=== PATIENT | female | born 1950 | race Caucasian/White ===

== ENCOUNTER 2019-09-27 01:18 | Emergency (ER) | payer BC, MEDICARE ==
[~2019-09-27] VITALS: Ht 167.7 cm; Wt 77.3 kg
--- NOTE | 2019-09-27 01:44 | ED Trauma-Multisystem ---
General Chief Complaint: Trauma-Non Activation Stated Complaint: FALL HEAD TRAUMA History of Present Illness Date Seen by Provider: Sep 27, 2019 Time Seen by Provider: 01:20 Initial Comments The patient is a 68-year-old female with a history of hypertension and tobacco abuse whose tetanus is not up-to-date. She presents with concern for a ground- level fall with consequent right forehead injury, all with onset just prior to arrival when the patient slipped as she was trying to get out of bed to urinate. She struck her right forehead on a shelf on her bed on the way down. No loss of consciousness, nausea or vomiting or amnesia to events. Patient denies pain anywhere aside from to her right forehead where a large contusion is seen. She specifically denies pain to her neck, chest, abdomen, back, arms or legs. She is alert and oriented 4 in pleasantly and appropriately interactive and in absolutely no distress upon initial evaluation in the emergency department. She ambulates in with a narrow, steady gait. No therapy for discomfort prior to arrival. Allergies and Home Medications Allergies Coded Allergies: No Known Drug Allergies (Unverified , 09/27/19) Home Medications Acetaminophen 325 Mg Tablet, 975 MG PO Q8H Prescribed by: ALYSON SCHWARTZ on 09/27/19148 Ondansetron 4 Mg Tab.rapdis, 4 MG PO Q8H Prescribed by: ALYSON SCHWARTZ on 09/27/19148 Patient Home Medication List Home Medication List Reviewed: Yes Review of Systems Review of Systems Constitutional: see HPI All Other Systems Reviewed Negative Unless Noted: Yes (Negative excepted noted.) Past Yusoimc-Aykpcs-Wxkdcd Hx Past Med/Social Hx: Reviewed Nursing Past Med/Soc Hx Patient Social History Recent Foreign Travel: No Contact w/Someone Who Travel: No Family Medical History Reviewed Nursing Family Hx Physical Exam Vital Signs Vital Signs - First Documented 09/27/19 01:42 Temp 36.1 Pulse 58 Resp 16 B/P (MAP) 197/79 (118) Pulse Ox 99 O2 Delivery Room Air Height, Weight, BMI Height: '" Weight: lbs. oz. kg; BMI Method: General Appearance: No Apparent Distress This is an elderly female appearing nontoxic and in no acute distress. Head is normocephalic and with an approximately 5 cm diameter contusion to the l ateral right forehead superior to the eyebrow. There is an associated abrasion. No laceration noted. No signs basilar fracture. No instability of the mid face, malocclusion, other signs of facial trauma. Neck is supple and nontender. Oropharynx is moist. Lungs are clear to auscultation in all stations. There is a normal S1 and S2 without rubs or gallops and capillary refill is appropriate, less than 2 seconds globally. Abdomen is soft, nontender and nondistended. Skin is warm and dry and without cyanosis, clubbing or edema. Psychiatrically, the patient demonstrates appropriate mood and affect and is alert. Neurologically, cranial nerves II through XII are intact and there are no lateralizing deficits noted. Speech is normal. Language is normal. Coordination is normal. There is no dysmetria with bospun-ty-yula or mbgr-dj-zdgg bilaterally. Strength is 5 out of 5 in all joints of bilateral upper and lower extremities. Sensation is intact to light touch in bilateral upper and lower extremity. The patient ambulates with a narrow, steady gait in the emergency department and is alert and oriented 4. Progress/Results/Core Measures Results/Orders My Orders Orders - ALYSON SCHWARTZ MD Ct Head Wo (09/27/19 01:37) Acetaminophen Tablet/Caplet (Tylenol T (09/27/19 01:45) Dipht,Pertuss(Acell),Tet Adult (Boostrix (09/27/19 01:45) Medications Given in ED Current Medications Medications Dose Ordered Sig/Varinder Route Start Time Stop Time Status Last Admin Dose Admin Acetaminophen 975 mg ONCE ONCE PO 09/27/19 01:45 09/27/19 01:46 DC 09/27/19 01:52 975 MG Diphtheria/ Tetanus/Acell Pertussis 0.5 ml ONCE ONCE IM 09/27/19 01:45 09/27/19 01:46 DC 09/27/19 01:53 0.5 ML Vital Signs/I&O 09/27/19 01:42 Temp 36.1 Pulse 58 Resp 16 B/P (MAP) 197/79 (118) Pulse Ox 99 O2 Delivery Room Air Progress Progress Note : Time: 01:44 Progress Note Clinical examination reassuring and neurologic examination nonfocal. 68-year-old female with mechanical slip and fall leading to head injury. Does not rule out by [place] head CT rules purely due to age. We will check head CT and update tetanus and give Tylenol for discomfort and then reevaluate. If workup is reassuring, plan will be for discharge home with medication for discomfort, concussion precautions and instructions to follow up very closely in the next 1- 2 days with primary care. The patient and her grandson understand and agree with this plan of care. Update 0220: CT head negative per wet read; patient states in no uncertain terms that she does not want to wait for radiology read and understands the risks of leaving before it is back, including missed pathology, decompensation and permanent disability. We are going to take her phone number down so that we can call if radiologist read is of concern. Patient is resting comfortably in no acute distress and feels ready to go home. We will clean wound and apply dressing. The patient understands that if she feels worse is that of better or develops other new symptoms of concern that she should return immediately to the emergency department for reevaluation. Otherwise she is to follow up closely in the next 1-2 days with primary care as discussed. We will proceed with discharge home at this time. All questions are answered. Diagnostic Imaging Comments CT head: no acute process per EP read; statrad read pending. Departure Impression Primary Impression: Fall from bed, initial encounter Additional Impression: Contusion of forehead Qualified Codes: S00.83XA - Contusion of other part of head, initial encounter Disposition: 01 HOME, SELF-CARE Condition: Improved Departure-Patient Inst. Referrals: SELFDANIELLE MD (PCP/Family) Primary Care Physician Patient Instructions: Contusion (DC) Add. Discharge Instructions: Follow-up with your primary care physician in the next 1-2 days. You may use the ibuprofen as needed for discomfort. Return to the emergency department right away with worsen symptoms or with any other new symptoms of concern. Scripts Ondansetron (Ondansetron Odt) 4 Mg Tab.rapdis 4 MG PO Q8H for nausea, #10 TAB Prov: ALYSON SCHWARTZ MD 09/27/19 Acetaminophen (Tylenol) 325 Mg Tablet 975 MG PO Q8H for 5 Days, #50 TAB Prov: ALYSON SCHWARTZ MD 09/27/19 ALYSON SCHWARTZ MD Sep 27, 2019 01:44 POS
[2019-09-27] MEDS ORDERED: ACETAMINOPHEN 325 MG TABLET PO ONE (01:45)
[2019-09-27] MEDS ORDERED: TETANUS,DIPTH,PERTUSS P/F (BOOSTRIX) 0.5 ML VIAL IM ONE (01:45)
[2019-09-27] MEDS ORDERED: ONDA4TAB11 PO (01:49)
[2019-09-27] MEDS ORDERED: ACET325T38 PO (01:49)
--- NOTE | 2019-09-27 02:00 | NUR ---
wound cleansed with hibiclens and 4 x4 's
[2019-09-27 02:35] VITALS: BP 179/86
--- NOTE | 2019-09-27 06:55 | Diagnostic Imaging Report ---
PROCEDURE: CT head without contrast. TECHNIQUE: Multiple contiguous axial images were obtained through the brain without the use of intravenous contrast. Auto Exposure Controls were utilized during the CT exam to meet ALARA standards for radiation dose reduction. INDICATION: Fall, pain. EXAMINATION: CT brain without contrast 09/27/2019. COMPARISON: None. FINDINGS: Chronic ischemic change is seen in a periventricular distribution with an acute infarct not seen. No mass, mass effect or midline shift. No hydrocephalus. No hemorrhage is seen. There are some areas degraded by motion artifact, however. There is no acute osseous abnormality. A hematoma overlies the right frontal calvarium. Paranasal sinuses and mastoid air cells appear clear. IMPRESSION: 1. No acute intracranial process with chronic findings as above. 2. Scalp hematoma. Pertinent findings agree with the preliminary report. Dictated by: Dictated on workstation # [id number]
== END 2019-09-27 02:35 | disposition home or self-care (01) ==
LOC: EDUNIT# 01:18 → ER FS 01:23
DX: S00.83XA Contusion of other part of head, initial encounter (principal); I10 Essential (primary) hypertension; W06.XXXA Fall from bed, initial encounter; W01.190A Fall on same level from slipping, tripping and stumbling with subsequent striking against furniture, initial encounter
CPT/HCPCS: 70450; 90471; 90715

== ENCOUNTER 2020-06-27 09:17 | Emergency (ER) | payer BC, MEDICARE ==
[~2020-06-27] VITALS: Ht 170.1 cm; Wt 72.7 kg
[~2020-06-27 09:17] MED LIST: ACET325T38 PO; ONDA4TAB11 PO
--- OUTSIDE RECORDS SUMMARY | 2020-06-27 09:31 | XMS REPORT | Continuity of Care Document ---
Author Organization Unknown Address Unknown Phone Unavailable Allergies Active Description Code Type Severity Reaction Onset Reported/Identified Relationship to Patient Clinical Status Yes No Known Drug Allergies [id number] Drug Allergy Unknown N/A 09/27/2019 Medications There is no data. Problems Date Dx Coded Attending Type Code Diagnosis Diagnosed By 09/27/2019 ALYSON SCHWARTZ MD, Ot I10 ESSENTIAL (PRIMARY) HYPERTENSION 09/27/2019 ALYSON SCHWARTZ MD, Ot S00.83XA CONTUSION OF OTHER PART OF HEAD, INITIAL 09/27/2019 ALYSON SCHWARTZ MD Ot W01.190A FALL SAME LEV FROM SLIP/TRIP W STRIKE AG 09/27/2019 ALYSON SCHWARTZ MD, Ot W06.XXXA FALL FROM BED, INITIAL ENCOUNTER 10/01/2019 ALYSON SCHWARTZ MD, Ot I10 ESSENTIAL (PRIMARY) HYPERTENSION 10/01/2019 ALYSON SCHWARTZ MD, Ot S00.83XA CONTUSION OF OTHER PART OF HEAD, INITIAL 10/01/2019 ALYSON SCHWARTZ MD, Ot W01.190A FALL SAME LEV FROM SLIP/TRIP W STRIKE AG 10/01/2019 ALYSON SCHWARTZ MD, Ot W06.XXXA FALL FROM BED, INITIAL ENCOUNTER Procedures There is no data. Results Test Result Range TSH w/ FREE T4 - 03/27/19 10:30 TSH 0.24 mIU/L 0.40-4.50 T4, FREE 1.3 ng/dL 0.8-1.8 LIPID PANEL - 05/22/20 12:00 CHOLESTEROL, TOTAL 206 mg/dL <200 HDL CHOLESTEROL 38 mg/dL > OR = 50 TRIGLYCERIDES 103 mg/dL <150 LDL-CHOLESTEROL 146 mg/dL (calc) NRG CHOL/HDLC RATIO 5.4 (calc) <5.0 NON HDL CHOLESTEROL 168 mg/dL (calc) <13 0 CMP - 05/22/20 12:00 GLUCOSE 114 mg/dL 65-99 UREA NITROGEN (BUN) 16 mg/dL 7-25 CREATININE 1.00 mg/dL 0.60-0.93 eGFR NON-AFR. TURKMEN 57 mL/min/1.73m2 > OR = 60 eGFR 66 mL/min/1.73m2 > OR = 60 BUN/CREATININE RATIO 16 (calc) 6-22 SODIUM 125 mmol/L 135-146 POTASSIUM 4.4 mmol/L 3.5-5.3 CHLORIDE 88 mmol/L 98-110 CARBON DIOXIDE 30 mmol/L 20-32 CALCIUM 9.4 mg/dL 8.6-10.4 PROTEIN, TOTAL 6.7 g/dL 6.1-8.1 ALBUMIN 4.0 g/dL 3.6-5.1 GLOBULIN 2.7 g/dL (calc) 1.9-3.7 ALBUMIN/GLOBULIN RATIO 1.5 (calc) 1.0-2. 5 BILIRUBIN, TOTAL 1.1 mg/dL 0.2-1.2 ALKALINE PHOSPHATASE 63 U/L 37-153 AST 12 U/L 10-35 ALT 7 U/L 6-29 Encounters ACCT No. Visit Date/Time Discharge Status Pt. Type Provider Facility Loc./Unit Complaint [id number] 05/29/2020 11:00:00 05/29/2020 23:59: 59 CLS Outpatient SELF, DANIELLE Mccord [facility] [id number] 05/22/2020 10:45:00 Document Registration [id number] 03/27/2019 09:00:00 Document Registration [id number] 09/27/2019 01:23:00 019 02:35:00 DIS Emergency LANA CASEY, ALYSON [facility] ER FS FALL HEAD TRAUMA
[2020-06-27] MEDS ORDERED: LIDOCAINE 1% INJ 20 ML 20 ML VIAL INJ ONE (09:45)
--- NOTE | 2020-06-27 09:57 | ED Trauma-Multisystem ---
General Chief Complaint: Trauma-Non Activation Stated Complaint: LAC FROM FALL History of Present Illness Date Seen by Provider: Jun 27, 2020 Time Seen by Provider: 09:30 Initial Comments Patient was walking outside [facility] with a crockpot and her hand landing on the glass numerous lacerations left forearm right hand right knee right lip lower no loss of consciousness later someone came by called EMS. Occurred: Just Prior to Arrival Severity: Mild Pain/Injury Location: Lower Extremity, Upper Extremity Method of Injury: Fall Loss of Consciousness: No Loss of Consciousness Associated Symptoms (Fall): No Confusion, No Dizziness, No Headache, No Lightheadedness, No Nausea/Vomiting, No Trouble Walking Allergies and Home Medications Allergies Coded Allergies: No Known Drug Allergies (Unverified , 09/27/19) Home Medications Acetaminophen 325 Mg Tablet, 975 MG PO Q8H Prescribed by: ALYSON SCHWARTZ on 09/27/19148 Ondansetron 4 Mg Tab.rapdis, 4 MG PO Q8H Prescribed by: ALYSON SCHWARTZ on 09/27/19148 Patient Home Medication List Home Medication List Reviewed: Yes Review of Systems Review of Systems Constitutional: no symptoms reported Eyes: Denies Blurred Vision, Denies Vision Changes Ears: Denies Dizziness, Denies Tinnitus Mouth: No Loose Teeth; Pain, Swelling Throat: No Symptoms to Report Respiratory: no symptoms reported Cardiovascular: No Symptoms Reported Gastrointestinal: no symptoms reported Musculoskeletal: No joint pain, No joint swelling, No muscle pain Skin: other (numerous lacerations noted) Past Yoqasfr-Vqcopa-Udrxur Hx Past Med/Social Hx: Reviewed Nursing Past Med/Soc Hx Patient Social History Alcohol Use: Occasionally Uses Number of Drinks Today: 0 Alcohol Beverage of Choice: Other Recreational Drug Use: No Smoking Status: Current Everyday Smoker Type Used: Cigarettes Recent Hopitalizations: No Immunizations Up To Date Tetanus Booster (TDap): Unknown Seasonal Allergies Seasonal Allergies: No Past Medical History Surgeries: Yes Cystectomy, Tonsillectomy Respiratory: No Cardiac: Yes Hypertension Neurological: No Genitourinary: No Gastrointestinal: No Musculoskeletal: Yes (arthritis knees) Arthritis Endocrine: No HEENT: No Cancer: No Psychosocial: No Integumentary: No Blood Disorders: No Physical Exam Vital Signs Vital Signs - First Documented 06/27/20 09:17 Temp 36.8 Pulse 62 Resp 18 B/P (MAP) 163/53 (89) Pulse Ox 99 O2 Delivery Room Air Height, Weight, BMI Height: '" Weight: lbs. oz. kg; 27.00 BMI Method: General Appearance: WD/WN, Mild Distress Head: Other (superficial abrasion contusion right upper lip) Eyes: Bilateral Eye Normal Inspection, Bilateral Eye PERRL, Bilateral Eye EOMI Ears, Nose, Throat: No Evidence of ENT Injury Neck: Normal Inspection, Non Tender Cardiovascular: Regular Rate, Rhythm, No Murmur Respiratory: Chest Non Tender, Normal Breath Sounds Extremity: Other (laceration beginning just lateral left elbow laceration on the knee several lacerations right hand laceration on the elbow 4 cm in length fairly gaping with extension down to the subcutaneous fat no foreign body identified laceration on the right knee approximately 2 cm in size no foreign body lacerations on the hand fairly extensive proximal laceration on the fourth finger dorsal side of the hand not in the tendinous structures smaller laceration on the dorsum and then middle phalanx 2 small lacerations one on the fourth finger one on the third finger both of the finger pads that appeared to be more shaving than a true laceration.) Neurologic/Psychiatric: Alert, Oriented x3 Skin: Normal Color, Warm/Dry Procedures/Interventions Progress Sterile prep and drape 1% local lidocaine with thorough irrigation for all lacerations 4 cm laceration left elbow gaping thoroughly irrigated closed with 6 4-0 Ethilon sutures laceration on the right knee 1-1/2 cm closed with 3 4-0 Ethilon sutures laceration on the dorsum of the right hand closed with 6 4-0 Ethilon sutures laceration #2 on the the right hand closed with 2 4-0 Ethilon sutures patient tolerated procedure well no foreign bodies were identified. Progress/Results/Core Measures Results/Orders My Orders Orders - RADHA LUIS JR, MD Lidocaine 1% Inj 20 Ml (Xylocaine 1% Inj (06/27/20 09:45) Medications Given in ED Current Medications Medications Dose Ordered Sig/Varinder Route Start Time Stop Time Status Last Admin Dose Admin Lidocaine HCl 20 ml ONCE ONCE INJ 06/27/20 09:45 06/27/20 09:46 DC 06/27/20 10:03 20 ML Vital Signs/I&O 06/27/20 09:17 Temp 36.8 Pulse 62 Resp 18 B/P (MAP) 163/53 (89) Pulse Ox 99 O2 Delivery Room Air Departure Impression Primary Impression: Multiple lacerations Disposition: HOME, SELF-CARE Condition: Stable Departure-Patient Inst. Referrals: DANIELLE LA MD (PCP/Family) Primary Care Physician Patient Instructions: Laceration Repair With Stitches (DC) Add. Discharge Instructions: Sutures out in 10 days return if any sign of infection All discharge instructions reviewed with patient and/or family. Voiced understanding. Work/School Note: Work Release Form Date Seen in the Emergency Department: Jun 27, 2020 Return to Work: Jun 30, 2020 Restrictions: No Restrictions RADHA LUIS JR, MD Jun 27, 2020 09:57
[2020-06-27] MEDS ORDERED: TETANUS,DIPTH,PERTUSS P/F (BOOSTRIX) 0.5 ML VIAL IM ONE (10:30)
[2020-06-27 10:39] VITALS: BP 155/56
--- NOTE | 2020-06-27 10:39 | NUR ---
Patient discharged following review of home instructions discussed and verbalizing understanding. Sutures out in 10 days. Wound care pre and post suturing per Jacquelin THOMAS. Dressings applied per Jacquelin THOMAS. AISSATOU garcia. Tetanus administered before discharge. Family called twice for updates on patient and information given per pt's permission. Pt is off work till Tuesday with work note provided. Numerous laceration repairs per Dr Patel dictation.
[2020-06-27] MEDS ORDERED: LISI40TA PO (11:15)
[2020-06-27] MEDS ORDERED: AMLO5TAB9 PO (11:15)
[2020-06-27] MEDS ORDERED: CELE-63 PO (11:15)
[2020-06-27] MEDS ORDERED: HYDR25TA4 PO (11:15)
[2020-06-27] MEDS ORDERED: ROSU20TA32 PO (11:15)
== END 2020-06-27 10:39 | disposition home or self-care (01) ==
LOC: EDUNIT# 09:17 → ER FS 09:18
DX: S81.011A Laceration without foreign body, right knee, initial encounter (principal); S51.012A Laceration without foreign body of left elbow, initial encounter; S61.214A Laceration without foreign body of right ring finger without damage to nail, initial encounter; S61.212A Laceration without foreign body of right middle finger without damage to nail, initial encounter; S00.531A Contusion of lip, initial encounter; Z23 Encounter for immunization; F17.210 Nicotine dependence, cigarettes, uncomplicated; W18.39XA Other fall on same level, initial encounter
CPT/HCPCS: 12015; 90715

== ENCOUNTER 2021-12-09 14:14 | Emergency (ER) | payer BC, MEDICARE ==
[~2021-12-09] VITALS: Ht 167 cm; Wt 74.0 kg
[~2021-12-09 14:14] MED LIST changes: +AMLO-250 PO; +CELE-63 PO; +HYDR25TA4 PO; +LISI40TA9 PO; +ROSU20TA32 PO
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
--- NOTE | 2021-12-09 15:08 | Diagnostic Imaging Report ---
INDICATION: Pain in the right lower leg. TIME OF EXAM: 02:52 p.m. TECHNIQUE: Frontal and lateral views of the right tibia and fibula were obtained. FINDINGS: Alignment at the knee and ankle appears normal. No fracture is identified. Tibia and fibula appear intact. Soft tissues are unremarkable. IMPRESSION: No acute bony abnormality is detected. Dictated by: Dictated on workstation # [id number]
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
[2021-12-09] MEDS ORDERED: HYDROcodone/APAP 5 MG/325 MG (LORTAB) TAB PO STA (16:09)
[2021-12-09] MEDS ORDERED: ACHD5005 PO (16:17)
[2021-12-09 16:23] VITALS: BP 142/72
== END 2021-12-09 16:24 | disposition home or self-care (01) ==
LOC: EDUNIT# 14:14 → ER FS 14:15
DX: S32.030A Wedge compression fracture of third lumbar vertebra, initial encounter for closed fracture (principal); S80.11XA Contusion of right lower leg, initial encounter; I10 Essential (primary) hypertension; F17.210 Nicotine dependence, cigarettes, uncomplicated; Z79.899 Other long term (current) drug therapy; W19.XXXA Unspecified fall, initial encounter; Y92.009 Unspecified place in unspecified non-institutional (private) residence as the place of occurrence of the external cause
CPT/HCPCS: 72131; 72192; 73590

== ENCOUNTER → 2022-01-12 | Outpatient (CLI) | payer BC, MEDICARE ==
[~2022-01-12] MED LIST changes: +ACHD5005 PO
--- NOTE | 2022-01-13 08:59 | Diagnostic Imaging Report ---
CLINICAL INDICATION: Patient fell a month ago and has low back pain. EXAM: MRI of the lumbar spine performed without IV contrast. Sequences include sagittal T2, sagittal T1, sagittal T2 fat-sat, and axial T2. COMPARISON: CT scan of the lumbar spine without contrast dated 12/09/2021. FINDINGS: There is a small to moderate amount of marrow edema involving the upper aspect of the T12 vertebra with curvilinear horizontally oriented low signal seen within the region, consistent with acute/subacute infarcts. There is roughly 20% loss of height with no significant retropulsed component. This is new compared to the prior CT scan. Again seen is the subacute compression fracture deformity of the L3 vertebra with a small to moderate amount of marrow edema. There is slight progression of loss of height of the vertebra with roughly 40-50% loss of height. There is no other acute lumbar spine fracture. There is no significant paraspinal soft tissue abnormality. The visualized portions of the distal thoracic spinal cord, conus medullaris, and cauda equina nerve roots are unremarkable. The conus medullaris tip is seen at the upper L1 vertebral body level. There is no significant paraspinal soft tissue abnormality. There are small cysts involving the right kidney. There are small degenerative spurs seen throughout the lumbar spine and multilevel lumbar spine facet arthropathy. T11-T12: There is moderate bilateral facet arthropathy and mild diffuse disk bulge. There is moderate central canal stenosis and moderate right neuroforaminal narrowing with no significant left neuroforaminal narrowing. T12-L1: There is mild diffuse disk bulge and mild to moderate bilateral facet arthropathy. There is no significant central canal stenosis. There is mild right neuroforaminal narrowing and no significant left neuroforaminal narrowing. L1-L2: There is mild diffuse disk bulge and moderate bilateral facet arthropathy. There is no significant central canal narrowing. There is moderate right neuroforaminal narrowing and mild left neuroforaminal narrowing. L2-L3: There is mild diffuse disk bulge, moderate bilateral facet arthropathy/hypertrophy, and ligamentum flavum buckling. Mild to moderate central canal stenosis. There is mild bilateral neuroforaminal narrowing. L3-L4: There is minimal disk bulging. There is severe bilateral facet arthropathy/hypertrophy and ligamentum flavum buckling. There is mild to moderate central canal stenosis. There is mild right neuroforaminal narrowing and no significant left neuroforaminal narrowing. L4-L5: There is severe bilateral facet arthropathy with hypertrophic changes on the right side. There is ligamentum flavum buckling. There is an annular tear involving the right subarticular aspect of the disk. There is moderate right neuroforaminal narrowing and mild to moderate left neuroforaminal narrowing. There is mild central canal stenosis. L5-S1: There is severe bilateral facet arthropathy. There is no significant central canal or neuroforaminal narrowing. IMPRESSION: 1: There has been interval development of a mild acute/subacute compression fracture deformity of the upper aspect of the T12 vertebra. 2: There is a subacute fracture involving the upper aspect of the L3 vertebra which has slightly progressed in loss of height in the interim. 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 Dictated by: Dictated on workstation # [id number]
== END ==
LOC: RAD 14:45
PROVIDERS: ATTEND Family Medicine
DX: M48.54XA Collapsed vertebra, not elsewhere classified, thoracic region, initial encounter for fracture (principal); M47.814 Spondylosis without myelopathy or radiculopathy, thoracic region; M47.815 Spondylosis without myelopathy or radiculopathy, thoracolumbar region; M47.816 Spondylosis without myelopathy or radiculopathy, lumbar region; M47.817 Spondylosis without myelopathy or radiculopathy, lumbosacral region; M51.24 Other intervertebral disc displacement, thoracic region; M51.25 Other intervertebral disc displacement, thoracolumbar region; M51.26 Other intervertebral disc displacement, lumbar region; M51.36 Other intervertebral disc degeneration, lumbar region; M48.04 Spinal stenosis, thoracic region; M48.05 Spinal stenosis, thoracolumbar region; M48.061 Spinal stenosis, lumbar region without neurogenic claudication; W19.XXXD Unspecified fall, subsequent encounter; M48.07 Spinal stenosis, lumbosacral region
CPT/HCPCS: 72148

== ENCOUNTER 2022-02-17 11:03 | Emergency (ER) | payer BC, MEDICARE ==
[~2022-02-17] VITALS: Ht 167.7 cm; Wt 70.0 kg
[2022-02-17 11:10] VITALS: BP_SYST 158; BP_SYST 179; BP_SYST 186; BP_DIAS 68; BP_DIAS 76; BP_DIAS 84
--- NOTE | 2022-02-17 11:25 | ED General ---
General Stated Complaint: DIZZINESS; VOMITING Source of Information: Patient Exam Limitations: No Limitations History of Present Illness Date Seen by Provider: Feb 17, 2022 Time Seen by Provider: 11:06 Initial Comments 71yoF with PMH of HTN and OA coming in due to lightheadness and an episode of nb/nb vomiting this morning. She is able to walk without falling over. Started around 04:00am. Has never happened before. Worse when she turns her head or moves. It is completely gone if she sits up and does not move for a minute. No chest pain, SOA, abd pain, weakness, numbness, vision changes, syncope, or any other concerns. Allergies and Home Medications Allergies Coded Allergies: codeine (Verified Adverse Reaction, Severe, Nausea, 12/09/21) Patient Home Medication List Home Medication List Reviewed: Yes Amlodipine Besylate (Amlodipine Besylate) 5 Mg Tablet, 5 MG PO DAILY, (Reported) Entered as Reported by: ANNABELLA WHITFIELD on 06/27/20 111 Celecoxib (Celecoxib) 200 Mg Capsule, 400 MG PO DAILY, (Reported) Entered as Reported by: ANNABELLA WHITFIELD on 06/27/20 111 Hydrochlorothiazide (Hydrochlorothiazide) 25 Mg Tablet, 25 MG PO DAILY, (Reported) Entered as Reported by: ANNABELLA WHITFIELD on 06/27/20 111 Hydrocodone/Acetaminophen (Hydrocodone-Acetamin 5-325 mg) 1 Each Tablet, 1 TAB PO Q6H PRN for PAIN-SEVERE (8-10) Prescribed by: EMMA UGARTE on 12/09/21 1618 Lisinopril (Lisinopril) 40 Mg Tablet, 40 MG PO DAILY, (Reported) Entered as Reported by: ANNABELLA WHITFIELD on 06/27/20 111 Rosuvastatin Calcium (Rosuvastatin Calcium) 20 Mg Tablet, 20 MG PO DAILY, (Reported) Entered as Reported by: ANNABELLA WHITFIELD on 06/27/20 111 Review of Systems Review of Systems Constitutional: No chills, No fever EENTM: No blurred vision Respiratory: No cough Cardiovascular: No chest pain Gastrointestinal: No abdominal pain; vomiting Genitourinary: no symptoms reported Musculoskeletal: no symptoms reported Skin: no symptoms reported Psychiatric/Neurological: Other (light headed) Hematologic/Lymphatic: No Symptoms Reported Immunological/Allergic: no symptoms reported All Other Systems Reviewed Negative Unless Noted: Yes Past Bqurugb-Zebfxh-Hfsirb Hx Patient Social History Tobacco Use?: Yes Tobacco type used: Cigarettes Immunizations Up To Date Tetanus Booster (TDap): Unknown Seasonal Allergies Seasonal Allergies: No Past Medical History Surgeries: Yes Cystectomy, Tonsillectomy Respiratory: No Cardiac: Yes Hypertension Neurological: No Genitourinary: No Gastrointestinal: No Musculoskeletal: Yes (arthritis knees) Arthritis Endocrine: No HEENT: No Cancer: No Psychosocial: No Integumentary: No Blood Disorders: No Physical Exam Vital Signs Vital Signs - First Documented 02/17/22 11:10 Temp 35.2 Pulse 57 57 52 Resp 14 B/P (MAP) 179/84 (115) 186/76 (112) 158/68 (98) Pulse Ox 97 O2 Delivery Room Air Capillary Refill : Height, Weight, BMI Height: '" Weight: lbs. oz. kg; 26.00 BMI Method: General Appearance: No Apparent Distress, WD/WN Eyes: Bilateral Eye Normal Inspection, Bilateral Eye PERRL, Bilateral Eye EOMI HEENT: PERRL/EOMI, TMs Normal, Normal ENT Inspection, Pharynx Normal Neck: Full Range of Motion, Normal Inspection, Non Tender, Supple Respiratory: Chest Non Tender, Lungs Clear, Normal Breath Sounds, No Accessory Muscle Use, No Respiratory Distress Cardiovascular: Regular Rate, Rhythm, No Edema, Normal Peripheral Pulses Gastrointestinal: Normal Bowel Sounds, Non Tender, Soft; No Distended, No Guard ing Back: Normal Inspection, No CVA Tenderness, No Vertebral Tenderness Extremity: Normal Capillary Refill, Normal Inspection, Normal Range of Motion, Non Tender, No Calf Tenderness, No Pedal Edema Neurologic/Psychiatric: Alert, Oriented x3, No Motor/Sensory Deficits, Normal Mood/Affect, dishwasher II-XII Norm as Tested, Other (Normal doixow-dj-zcec, normal teyt-ty-aozu, no dysdiadochokinesia, normal tandem gait) Skin: Normal Color, Warm/Dry Lymphatic: No Adenopathy Progress/Results/Core Measures Suspected Sepsis SIRS Temperature: Pulse: Respiratory Rate: Laboratory Tests 02/17/22 11:14: White Blood Count 6.0 Blood Pressure / Mean: Laboratory Tests 02/17/22 11:14: Creatinine 0.74, INR Comment 0.9, Platelet Count 234, Total Bilirubin 1.3H Results/Orders Lab Results Laboratory Tests Test 02/17/22 11:14 Range/Units White Blood Count 6.0 4.3-11.0 10^3/uL Red Blood Count 4.84 3.80-5.11 10^6/uL Hemoglobin 14.5 11.5-16.0 g/dL Hematocrit 40 35-52 % Mean Corpuscular Volume 83 80-99 fL Mean Corpuscular Hemoglobin 30 25-34 pg Mean Corpuscular Hemoglobin Concent 36 32-36 g/dL Red Cell Distribution Width 12.5 10.0-14.5 % Platelet Count 234 130-400 10^3/uL Mean Platelet Volume 8.4 L 9.0-12.2 fL Immature Granulocyte % (Auto) 0 % Neutrophils (%) (Auto) 71 42-75 % Lymphocytes (%) (Auto) 20 12-44 % Monocytes (%) (Auto) 5 0-12 % Eosinophils (%) (Auto) 3 0-10 % Basophils (%) (Auto) 1 0-10 % Neutrophils # (Auto) 4.3 1.8-7.8 10^3/uL Lymphocytes # (Auto) 1.2 1.0-4.0 10^3/uL Monocytes # (Auto) 0.3 0.0-1.0 10^3/uL Eosinophils # (Auto) 0.2 0.0-0.3 10^3/uL Basophils # (Auto) 0.1 0.0-0.1 10^3/uL Immature Granulocyte # (Auto) 0.0 0.0-0.1 10^3/uL Prothrombin Time 12.1 L 12.2-14.7 SEC INR Comment 0.9 0.8-1.4 Activated Partial Thromboplast Time 29 24-35 SEC Sodium Level 126 L 135-145 MMOL/L Potassium Level 3.7 3.6-5.0 MMOL/L Chloride Level 89 L 98-107 MMOL/L Carbon Dioxide Level 27 21-32 MMOL/L Anion Gap 10 5-14 MMOL/L Blood Urea Nitrogen 12 7-18 MG/DL Creatinine 0.74 0.60-1.30 MG/DL Estimat Glomerular Filtration Rate 85 BUN/Creatinine Ratio 16 Glucose Level 102 70-105 MG/DL Calcium Level 9.7 8.5-10.1 MG/DL Corrected Calcium 8.5-10.1 MG/DL Magnesium Level 1.5 L 1.6-2.4 MG/DL Total Bilirubin 1.3 H 0.1-1.0 MG/DL Aspartate Amino Transf (AST/SGOT) 16 5-34 U/L Alanine Aminotransferase (ALT/SGPT) 9 0-55 U/L Alkaline Phosphatase 85 40-136 U/L Troponin I < 0.30 <0.30 NG/ML Total Protein 7.8 6.4-8.2 GM/DL Albumin 4.6 H 3.2-4.5 GM/DL My Orders Orders - MONIQUE LANGLEY MD Ct Head Wo (02/17/22 11:39) Chest 1 View Ap/Pa Only (02/17/22 11:39) Cbc With Automated Diff (02/17/22 11:39) Comprehensive Metabolic Panel (02/17/22 11:39) Magnesium (02/17/22 11:39) Protime With Inr (02/17/22 11:39) Partial Thromboplastin Time (02/17/22 11:39) Troponin I Fs (02/17/22 11:39) Ed Iv/Invasive Line Start (02/17/22 11:39) Vital Signs (02/17/22 11:39) Ekg Tracing (02/17/22 11:39) Monitor-Rhythm Ecg Trace Only (02/17/22 11:39) Orthostatic Vital Signs (Adult (02/17/22 11:39) Lactated Ringers (Lr 1000 Ml Iv Solution (02/17/22 11:39) Meclizine Tablet (Antivert Tablet) (02/17/22 11:45) Ondansetron Injection (Zofran Injectio (02/17/22 11:45) Medications Given in ED Current Medications Medications Dose Ordered Sig/Varinder Route Start Time Stop Time Status Last Admin Dose Admin Meclizine HCl 25 mg ONCE ONCE PO 02/17/22 11:45 02/17/22 11:46 DC 02/17/22 11:55 25 MG Ondansetron HCl 4 mg ONCE ONCE IVP 02/17/22 11:45 02/17/22 11:46 DC 02/17/22 11:55 4 MG Vital Signs/I&O 02/17/22 02/17/22 02/17/22 11:10 11:10 12:50 Temp 35.2 Pulse 57 57 54 57 52 Resp 14 18 B/P (MAP) 179/84 (115) 186/76 (112) 137/53 186/76 (112) 158/68 (98) Pulse Ox 97 96 O2 Delivery Room Air Room Air Capillary Refill : Progress Note : Progress Note 71-year-old female with above history coming in due to lightheadedness. ABCs were intact and vitals were stable on presentation. Physical exam reassuring including a normal neurological exam that was extensive. She has a normal gait and is not falling to one side. Normal cerebellar exam specifically. Basic labs obtained and significant for a sodium of [address] head and chest x-ray without abnormality. Given her some fluids and some meclizine for the potential for peripheral vertigo to see if this helps. Patient continues to be stable with minimal symptoms on my exam. I believe she is okay for discharge with outpatient follow-up. She was sent home with strict return precautions. ECG Initial ECG Impression Date: Feb 17, 2022 Initial ECG Impression Time: 11:25 Initial ECG Rate: 52 Initial ECG Rhythm: S.Vahid Comment Narrow QRS, normal axis, no significant ST changes or T wave abnormalities Diagnostic Imaging Diagonstic Imaging: Xray (chest), CT (head) Comments [facility], [place] NAME: JHONY VILLATORO [facility] REC#: [id number] PT STATUS: REG ER : 1950 PHYSICIAN: MONIQUE LANGLEY MD ADMIT DATE: 02/17/22/ER FS Draft Date of Exam:02/17/22 CT HEAD WO PROCEDURE: CT head without contrast. TECHNIQUE: Multiple contiguous axial images were obtained through the brain without the use of intravenous contrast. Auto Exposure Controls were utilized during the CT exam to meet ALARA standards for radiation dose reduction. INDICATION: Dizziness. Correlation is made with prior head CT from 09/27/2019. The ventricles and sulci are within normal limits. Mild periventricular hypodensity is noted consistent with chronic microvascular ischemia. No sulcal effacement is seen. There is no midline shift. No acute intra-axial or extra-axial hemorrhage is detected. 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 Cisterns are patent. Visualized paranasal sinuses are clear. IMPRESSION: Stable chronic changes. No acute intracranial process is detected. Dictated on workstation # [id number] Dict: 02/17/22 1208 Trans: 02/17/22 1211 SA [id number] Interpreted by: LARUIE FRIEND MD Electronically signed by: [facility] [place], [place] NAME: JHONY VILLATORO [facility] REC#: [id number] PT STATUS: REG ER : 1950 PHYSICIAN: MONIQUE LANGLEY MD ADMIT DATE: 02/17/22/ER FS Draft Date of Exam:02/17/22 CHEST 1 VIEW AP/PA ONLY INDICATION: Weakness Frontal chest obtained at 11:50 a.m. Heart is borderline enlarged. There is no focal infiltrate or pneumothorax or pleural fluid. IMPRESSION: Borderline cardiomegaly with no acute process in the chest. Dictated on workstation # [id number] Dict: 02/17/22 1212 Trans: 02/17/22 1214 CVB [id number] Interpreted by: FADI BARRIENTOS MD Electronically signed by: Departure Impression Primary Impression: Dizziness Additional Impression: Hyponatremia Disposition: 01 HOME, SELF-CARE Condition: Stable Departure-Patient Inst. Decision time for Depature: 12:43 Referrals: DANIELLE LA MD (PCP) Primary Care Physician BETHANIE LEYVA MD Patient Instructions: Hyponatremia (DC), Dizziness, Adult ED Add. Discharge Instructions: You are seen in the emergency department because you are feeling dizzy. Your labs look good except for your sodium is low at 126. Sometimes this is chronic. Typically this is not you needing more salt, but typically means you need slightly less fluid per day. I want you to see you primary doctor to have these redrawn in 1-2 weeks to see the level of your sodium. You heart rate was in the 50s which can be normal, but I do want you to follow- up with her casino cashier, Dr. Leyva, whose number is in this paperwork. If you have any severe chest pain, severe shortness of breath, weakness on one side of your body, or any other concerns then please come back to the ER. MONIQUE LANGLEY MD Feb 17, 2022 11:25
[2022-02-17] MEDS ORDERED: LACTATED RINGERS 1,000 ML IV STA (11:39)
[2022-02-17] MEDS ORDERED: MECLIZINE 25 MG (ANTIVERT) TAB PO ONE (11:45)
[2022-02-17] MEDS ORDERED: ONDANSETRON 4 MG/2 ML (SDV) Z0FRAN IVP ONE (11:45)
[2022-02-17 11:56] LABS: BASOPHILS # (AUTO) 0.1 10^3/uL (0.0-0.1); BASOPHILS % (AUTO) 1 % (0-10); EOSINOPHILS # (AUTO) 0.2 10^3/uL (0.0-0.3); EOSINOPHILS % (AUTO) 3 % (0-10); HEMATOCRIT 40 % (35-52); HEMOGLOBIN 14.5 g/dL (11.5-16.0); LYMPHOCYTES # (AUTO) 1.2 10^3/uL (1.0-4.0); LYMPHOCYTES % (AUTO) 20 % (12-44); MEAN CORPUSCULAR HEMOGLOBIN 30 pg (25-34); MEAN CORPUSCULAR HGB CONC 36 g/dL (32-36); MEAN CORPUSCULAR VOLUME 83 fL (80-99); MEAN PLATELET VOLUME 8.4 fL (9.0-12.2); MONOCYTES # (AUTO) 0.3 10^3/uL (0.0-1.0); MONOCYTES % (AUTO) 5 % (0-12); NEUTROPHILS # (AUTO) 4.3 10^3/uL (1.8-7.8); NEUTROPHILS % (AUTO) 71 % (42-75); PLATELET COUNT 234 10^3/uL (130-400)
[2022-02-17 11:59] LABS: INR 0.9 (0.8-1.4); PROTHROMBIN TIME PATIENT 12.1 SEC (12.2-14.7)
--- NOTE | 2022-02-17 12:12 | Diagnostic Imaging Report ---
PROCEDURE: CT head without contrast. TECHNIQUE: Multiple contiguous axial images were obtained through the brain without the use of intravenous contrast. Auto Exposure Controls were utilized during the CT exam to meet ALARA standards for radiation dose reduction. INDICATION: Dizziness. Correlation is made with prior head CT from 09/27/2019. The ventricles and sulci are within normal limits. Mild periventricular hypodensity is noted consistent with chronic microvascular ischemia. No sulcal effacement is seen. There is no midline shift. No acute intra-axial or extra-axial hemorrhage is detected. 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 Cisterns are patent. Visualized paranasal sinuses are clear. IMPRESSION: Stable chronic changes. No acute intracranial process is detected. Dictated by: Dictated on workstation # [id number]
--- NOTE | 2022-02-17 12:14 | Diagnostic Imaging Report ---
INDICATION: Weakness Frontal chest obtained at 11:50 a.m. Heart is borderline enlarged. There is no focal infiltrate or pneumothorax or pleural fluid. IMPRESSION: Borderline cardiomegaly with no acute process in the chest. Dictated by: Dictated on workstation # [id number]
[2022-02-17 12:18] LABS: CHLORIDE 89 MMOL/L (98-107); POTASSIUM 3.7 MMOL/L (3.6-5.0); SODIUM 126 MMOL/L (135-145)
[2022-02-17 12:19] LABS: ALANINE AMINOTRANSFERASE 9 U/L (0-55); ALBUMIN 4.6 GM/DL (3.2-4.5); ALKALINE PHOSPHATASE 85 U/L (40-136); BILIRUBIN,TOTAL 1.3 MG/DL (0.1-1.0); BUN/CREATININE RATIO 16; CALCIUM 9.7 MG/DL (8.5-10.1); CARBON DIOXIDE 27 MMOL/L (21-32); CREATININE SERUM 0.74 MG/DL (0.60-1.30); GFR ESTIMATED 85; GLUCOSE 102 MG/DL (70-105); MAGNESIUM 1.5 MG/DL (1.6-2.4); TOTAL PROTEIN 7.8 GM/DL (6.4-8.2)
[2022-02-17 12:50] VITALS: BP 137/53
== END 2022-02-17 12:50 | disposition home or self-care (01) ==
LOC: EDUNIT# 11:03 → ER FS 11:04
DX: R42 Dizziness and giddiness (principal); E87.1 Hypo-osmolality and hyponatremia
CPT/HCPCS: 36415; 70450; 71045; 80053; 83735; 84484; 85025; 85610; 85730; 93005; 93041